=== PATIENT | female | born 1990 | race Two or more races ===

== ENCOUNTER 2018-01-04 15:27 | Emergency (ER) | payer MEDICAID ==
[~2018-01-04] VITALS: Ht 172.7 cm; Wt 88.0 kg
[2018-01-04 16:26] VITALS: BP 124/86
== END 2018-01-04 22:22 | disposition left against medical advice (07) ==
LOC: ER 15:27
DX: N89.8 Other specified noninflammatory disorders of vagina (principal); Z90.49 Acquired absence of other specified parts of digestive tract
CPT/HCPCS: 99281

== ENCOUNTER 2021-01-30 15:25 | Emergency (ER) | payer MEDICAID ==
[~2021-01-30] VITALS: Ht 172.7 cm; Wt 100.0 kg
[2021-01-30] MEDS ORDERED: ACETAMINOPHEN 325MG TABLET PO PRN (16:45)
[2021-01-30 18:29] LABS: BASOPHILS % 0.7 % (0.0-2.0); EOSINOPHILS % 0.7 % (0.0-5.0); HEMATOCRIT. 40.3 % (36.0-48.0); HEMOGLOBIN. 13.8 g/dL (12.0-16.0); LYMPHOCYTES % 28.3 % (20.0-50.0); MEAN CORPUSCULAR HEMOGLOBIN 30.7 pg (28.0-32.0); MEAN CORPUSCULAR VOLUME 89.8 fL (81.0-99.0); MEAN PLATELET VOLUME 8.1 fl (7.4-10.4); MONOCYTES % 5.8 % (2.0-8.0); NEUTROPHILS % 64.5 % (40.0-76.0); PLATELET 345 x1000/uL (130-400); RED BLOOD CELL COUNT 4.49 mill/uL (4.2-5.4)
[2021-01-30 18:36] LABS: CHLORIDE 105 mEq/L (98-107)
[2021-01-30 19:00] LABS: B-HCG QUANTITATIVE 49393 mIU/mL (<3)
[2021-01-30 19:43] VITALS: BP 111/68
== END 2021-01-30 20:06 | disposition home or self-care (01) ==
LOC: ER 15:25
DX: O46.91 Antepartum hemorrhage, unspecified, first trimester (principal); Z3A.08 8 weeks gestation of pregnancy; Z90.49 Acquired absence of other specified parts of digestive tract
CPT/HCPCS: 36415; 76801; 76802; 80053; 81025; 84702; 85025; 86850; 86900; 99284